=== PATIENT | female | born 1985 | race American Indian/Alaskan Native ===

== ENCOUNTER 2018-12-29 14:57 | Outpatient (CLI) | payer OTHER | END 2018-12-29 15:45 | disposition HB | LOC: NST 14:57 | DX: Z34.83 Encounter for supervision of other normal pregnancy, third trimester (principal) ==

== ENCOUNTER 2019-02-06 12:55 | Outpatient (CLI) | payer OTHER | END 2019-02-06 13:43 | disposition home or self-care (01) | LOC: NST 12:55 | DX: Z34.83 Encounter for supervision of other normal pregnancy, third trimester (principal) ==

== ENCOUNTER 2019-02-20 16:17 | Inpatient (IN) | payer OTHER ==
[~2019-02-20] VITALS: Ht 152.4 cm; Wt 67.1 kg
[2019-02-27] MEDS ORDERED: LOVENOX40 MG/0.4 (14:40)
[2019-03-19] MEDS ORDERED: PRENATAL TABLE1 EAC1 PO (18:29)
== END 2019-03-23 10:39 | disposition home or self-care (01) | DRG 788 ==
LOC: OB/GYN 02-27 13:15 → LDR 03-19 17:41 → OB/GYN 03-20 13:15
PROVIDERS: ADMIT Obstetrics & Gynecology Maternal & Fetal Medicine
PROC: 4A1HXCZ Monitoring of Products of Conception, Cardiac Rate, External Approach (ICD-10-PCS; 2019-03-19)
PROC: 3E0P7VZ Introduction of Hormone into Female Reproductive, Via Natural or Artificial Opening (ICD-10-PCS; 2019-03-20)
PROC: 3E033VJ Introduction of Other Hormone into Peripheral Vein, Percutaneous Approach (ICD-10-PCS; 2019-03-20)
PROC: 10D00Z1 Extraction of Products of Conception, Low, Open Approach (ICD-10-PCS; principal; 2019-03-20 16:00)
DX: O82 Encounter for cesarean delivery without indication (principal); O61.0 Failed medical induction of labor; Z3A.40 40 weeks gestation of pregnancy; Z37.0 Single live birth; O72.3 Postpartum coagulation defects; Z22.330 Carrier of Group B streptococcus

== ENCOUNTER 2019-02-27 13:22 | Outpatient (CLI) | payer OTHER ==
[2019-02-27] MEDS ORDERED: LOVENOX40 MG/0.4 (14:40)
== END 2019-02-27 16:02 | disposition home or self-care (01) ==
LOC: NST 13:22
DX: Z34.83 Encounter for supervision of other normal pregnancy, third trimester (principal)

== ENCOUNTER 2019-03-06 16:14 | Outpatient (CLI) | payer OTHER ==
[~2019-03-06 16:14] MED LIST: LOVENOX40 MG/0.4
== END 2019-03-06 18:12 | disposition home or self-care (01) ==
LOC: NST 16:14
DX: Z34.83 Encounter for supervision of other normal pregnancy, third trimester (principal)

== ENCOUNTER 2019-03-12 11:03 | Outpatient (CLI) | payer OTHER | END 2019-03-12 11:49 | disposition home or self-care (01) | LOC: NST 11:03 | DX: Z34.83 Encounter for supervision of other normal pregnancy, third trimester (principal) ==

== ENCOUNTER 2019-03-15 13:16 | Outpatient (CLI) | payer OTHER | END 2019-03-15 15:24 | disposition home or self-care (01) | LOC: NST 13:16 | DX: Z34.83 Encounter for supervision of other normal pregnancy, third trimester (principal) ==

== ENCOUNTER 2019-03-19 14:26 | Outpatient (CLI) | payer OTHER ==
[2019-03-19] MEDS ORDERED: PRENATAL TABLE1 EAC1 PO (18:29)
== END 2019-03-19 16:43 | disposition home or self-care (01) ==
LOC: NST 14:26
DX: Z34.83 Encounter for supervision of other normal pregnancy, third trimester (principal)